=== PATIENT | male | born 1945 | race African-American/Black ===

== ENCOUNTER → 2019-07-02 | Outpatient (CLI) | payer MEDICARE ==
[2014-03-09 08:28] VITALS: BP 158/77
[~2019-07-02] MED LIST: ASPI-482 PO; CHOL500045 PO; HYDR12.58 PO; NEBI5TAB2 PO; OMEG500C3 PO; RAMI10CA53 PO
--- NOTE | 2019-07-02 16:29 | RAD ---
Two-view right knee study Clinical indications: Right knee pain. FINDINGS: No acute fracture or dislocation or lytic process is seen. There is moderate spurring and joint space narrowing of the patellofemoral joint compartment. There is mild spurring and joint space narrowing of the lateral tibial femoral joint compartment. There is mild joint space narrowing without spurring of the medial tibiofemoral joint compartment. Calcified atheromatous disease of the superficial femoral artery and the popliteal artery and proximal calf arteries is seen. Small right knee joint effusion is seen. IMPRESSION: Tricompartmental primary degenerative osteoarthritis of the right knee. Small right knee joint effusion. Electronically signed by: Jad Bautista MD (07/02/2019 4:26 PM) [facility]
== END | disposition home or self-care (01) ==
LOC: PMG 11:44
PROVIDERS: ATTEND Physician Assistant
DX: M17.11 Unilateral primary osteoarthritis, right knee (principal); M25.861 Other specified joint disorders, right knee; M25.461 Effusion, right knee
CPT/HCPCS: 73560

== ENCOUNTER → 2019-09-03 | Outpatient (CLI) | payer MEDICARE ==
[2014-03-09 08:28] VITALS: BP 158/77
[2019-09-03 11:34] LABS: ALBUMIN 3.9 g/dL (3.4-5.0); ALBUMIN/GLOBULIN RATIO 0.9 (1.0-1.7); CALCIUM 9.4 mg/dL (8.5-10.1); CREATININE 1.3 mg/dL (0.7-1.3); GFR 65.3; TOTAL BILIRUBIN 0.5 mg/dL (0.2-1.0); TOTAL PROTEIN 8.1 g/dL (6.4-8.2)
[2019-09-03 11:35] LABS: POTASSIUM 4.4 mmol/L (3.5-5.1)
[2019-09-03 12:27] LABS: BASO # 0.1 x10^3/uL (0.0-0.2); BASO % 1 % (0-3); EOS # 0.2 x10^3/uL (0.0-0.7); EOS % 2 % (0-3); HEMATOCRIT 42.4 % (39.0-53.0); HEMOGLOBIN 13.7 g/dL (13.0-17.5); LYMPH # 2.1 x10^3/uL (1.0-4.8); LYMPH % 24 % (24-48); MEAN CORPUSCULAR HEMOGLOBIN 29 pg (25-35); MEAN CORPUSCULAR HGB CONC 32 g/dL (31-37); MEAN CORPUSCULAR VOLUME 90 fL (79-100); MONO # 0.6 x10^3/uL (0.0-1.1); MONO % 6 % (0-9); NEUT # 5.9 x10^3uL (1.8-7.7); NEUT % 67 % (31-73); PLATELET COUNT 196 x10^3/uL (140-400); RED BLOOD COUNT 4.74 x10^6/uL (4.30-5.70); RED CELL DISTRIBUTION WIDTH 15.6 % (11.5-14.5); WHITE BLOOD COUNT 8.9 x10^3/uL (4.0-11.0)
[2019-09-03 14:02] LABS: FREE T4 0.9 ng/dL (0.76-1.46); THYROID STIM HORMONE (TSH) 0.831 uIU/mL (0.358-3.740)
== END ==
LOC: LAB 09:23
PROVIDERS: ATTEND Physician Assistant
DX: Z12.5 Encounter for screening for malignant neoplasm of prostate (principal); I10 Essential (primary) hypertension; R35.0 Frequency of micturition; E78.5 Hyperlipidemia, unspecified; E55.9 Vitamin D deficiency, unspecified; D64.9 Anemia, unspecified
CPT/HCPCS: 36415; 80053; 80061; 82306; 84439; 84443; 85025; G0103